=== PATIENT | female | born 1955 | race Caucasian/White ===

== ENCOUNTER 2016-07-20 12:13 | Observation (INO) | payer MEDICAID ==
[2016-07-20] MEDS ORDERED: methylPREDNISolone Sodium Succinate 125 MG/2 ML SDV IM ONE (12:33)
--- NOTE | 2016-07-20 12:39 | EDM.PDOC ---
ED HISTORY OF PRESENT ILLNESS - General Chief Complaint: Respiratory Problem Stated Complaint: SHORT OF BREATH Time Seen by Provider: 07/20/16 12:31 Source of Information: Reports: Patient, Family History Limitations: Reports: No limitations - History of Present Illness INITIAL COMMENTS - FREE TEXT/NARRATIVE: Patient complaints of joint aches starting on Wednesday with nausea and vomiting starting Wednesday. She endorses fever and chills the last 2 nights. States she has sore ribs from all the coughing she has started doing since yesterday. 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 She has smoked 1/ 2 PPD for 30 years. Additional history includes htn, chronic pain, GERD, pancreatic cancer with removal of 2/3 pancrease, spleen, gall bladder, appendix. Removed ovaries, left uterus. She states initial suspicions of cancer were an origination from the appendix. Symptom Onset Date: 07/17/16 Timing/Duration: Reports: Sudden onset Severity: moderate Location, General: Reports: chest Quality: Reports: Ache Improves with: Reports: None, Medication Worsens with: Reports: Other (coughing) Associated Symptoms (General): Reports: cough, fever/chills, headaches, nausea/ vomiting, shortness of breath - Related Data Allergies/ADRs: Allergies Allergy/AdvReac Type Severity Reaction Status Date / Time Iodine and Iodide Containing Allergy Severe Anaphylactic Verified 07/14/16 09:55 Produc Shock erythromycin base Allergy Rash Verified 07/20/16 12:40 latex Allergy Rash Verified 07/20/16 12:40 Penicillins Allergy Rash Verified 07/20/16 12:40 Sulfa (Sulfonamide Allergy Rash Verified 07/20/16 12:40 Antibiotics) Home Meds: Home Meds Cyclobenzaprine [Flexeril] 10 mg PO Q8H PRN 07/20/16 [History] Gabapentin [Neurontin] 600 mg PO TID 07/20/16 [History] Losartan Potassium 25 mg PO DAILY 07/20/16 [History] Morphine Sulfate [Morphine Sulfate ER] 30 mg PO BID 07/20/16 [History] Omeprazole 20 mg PO DAILY 07/20/16 [History] SUMAtriptan [Imitrex] 25 mg PO Q2H PRN 07/20/16 [History] Warfarin [Coumadin] 7.5 mg PO DAILY 07/20/16 [History] amLODIPine [Norvasc] 5 mg PO DAILY 07/20/16 [History] ED ROS GENERAL - Review of Systems Review Of Systems: See Below Constitutional: Reports: fever, chills, night sweats HEENT: Reports: Other (pain bilateral forehead) Respiratory: Reports: Shortness of Breath, Wheezing, Pleuritic Chest Pain, Cough Cardiovascular: Reports: Dyspnea on exertion Endocrine: Reports: no symptoms GI/Abdominal: Reports: No symptoms : Reports: no symptoms Musculoskeletal: Reports: joint pain, other (describes rib pain) Skin: Reports: no symptoms Neurological: Reports: No Symptoms Psychiatric: Reports: No symptoms Hematologic/Lymphatic: Reports: no symptoms Immunologic: Reports: no symptoms ED EXAM, GENERAL - Physical Exam Exam: See Below Exam Limited By: No limitations General Appearance: alert, WD/WN, mild distress Eye Exam: bilateral eye: EOMI, PERRL Ears: normal TMs Throat/Mouth: Normal inspection, Normal oropharynx Head: atraumatic, normocephalic, sinus tenderness Neck: normal inspection, supple Respiratory/Chest: no respiratory distress, crackles, rhonchi (bibasilar) Cardiovascular: normal peripheral pulses, regular rate, rhythm, no edema Peripheral Pulses: 2+: posterior tibial (L), posterior tibial (R), dorsalis pedis (L), dorsalis pedis (R) GI/Abdominal: normal bowel sounds, soft, non tender Back Exam: normal inspection Extremities: normal inspection, normal range of motion, non-tender, no pedal edema, normal capillary refill Neurological: alert, oriented, CN II-XII intact, normal cognition Psychiatric: normal affect, normal mood Skin Exam: Warm, Dry, Intact, Ecchymosis Lymphatic: no adenopathy Departure - Departure Time of Disposition: 14:04 Disposition: Refer to Observation Condition: good Clinical Impression: Influenza B
[2016-07-20 13:25] LABS: CHLORIDE,CL 103 mmol/L (98-107); SODIUM,NA 139 mmol/L (136-145)
[2016-07-20] MEDS ORDERED: Albuterol/Ipratropium 3.0-0.5 MG/3 ML Neb Soln NEB ONE (13:30)
[2016-07-20] MEDS ORDERED: Sodium Chloride 0.9% 10 ML Syringe FLUSH PRN (14:03)
[2016-07-20] MEDS ORDERED: Albuterol 0.083% 2.5 MG/3 ML Neb Soln NEB PRN (14:40)
[2016-07-20] MEDS ORDERED: Acetaminophen 325 MG Tab PO PRN (14:40)
[2016-07-20] MEDS ORDERED: Docusate Sodium 100 MG Cap PO PRN (14:40)
[2016-07-20] MEDS ORDERED: Ondansetron 4 MG Tab.DIS PO PRN (14:40)
[2016-07-20] MEDS ORDERED: Cyclobenzaprine 10 MG Tab PO PRN (14:45)
[2016-07-20] MEDS ORDERED: SUMAtriptan 50 MG Tab PO PRN (14:45)
[2016-07-20] MEDS: Losartan 25 MG Tab PO SCH (14:56)
[2016-07-20] MEDS: Morphine 30 MG Tab.ER PO SCH ×2 (15:00→20:03)
[2016-07-20] MEDS: Nicotine 7 MG/24 Hr Patch TRDERM SCH (15:01)
[2016-07-20] MEDS: Sodium Chloride 0.9% 1,000 ML IV SCH ×2 (15:17→21:04)
[2016-07-20] MEDS ORDERED: Warfarin 2.5 MG Tab PO SCH (20:00)
[2016-07-20] MEDS: Gabapentin 300 MG Cap PO SCH (20:04)
[2016-07-21] MEDS: Sodium Chloride 0.9% 1,000 ML IV SCH (04:51)
[2016-07-21] MEDS ORDERED: Omeprazole 20 MG Cap.CR PO SCH (07:00)
[2016-07-21] MEDS: Losartan 25 MG Tab PO SCH (08:01)
[2016-07-21] MEDS: Gabapentin 300 MG Cap PO SCH (08:01)
[2016-07-21] MEDS: Morphine 30 MG Tab.ER PO SCH (08:01)
[2016-07-21] MEDS: Nicotine 7 MG/24 Hr Patch TRDERM SCH (08:01)
[2016-07-21 10:55] VITALS: BP 115/68
--- NOTE | 2016-07-22 01:14 | DISCH ---
ADMITTING PROVIDER: Ronal Barrera NP. DISCHARGING PROVIDER: Edward Whitt PA-C. ADMITTING DIAGNOSES: 1. Influenza B. 2. Acute chronic obstructive pulmonary disease exacerbation. DISCHARGE DIAGNOSES: 1. Influenza B. 2. Acute chronic obstructive pulmonary disease exacerbation. SUBJECTIVE: Amanda was admitted on observation status to our service yesterday afternoon with cough, myalgias, and respirophasic chest pain. The patient was found to be positive for influenza B. She does have a history of tobacco abuse disorder and undiagnosed history of COPD. She has not had any pulmonary function testing to determine an official diagnosis of this, however, she has been a heavy smoker for most of her life. The patient was experiencing some dyspnea yesterday, so a decision was made to admit the patient on observation status. Her vital signs on admission were blood pressure 129/74, pulse rate is 95, temp was 37.3, O2 saturation was in the low 90s at 3 L of oxygen per nasal cannula. She was saturating at approximately 86% without oxygen. PHYSICAL EXAMINATION: Vital Signs: This morning, blood pressure is 115/68, pulse rate is 83, respiratory rate 16, O2 saturations 91 and 92% on room air, temperature is 36.6. Skin: Warm, pink, and dry. Lungs: Does have some continued mild crackles and wheezing. Heart: Regular rate and rhythm. Abdomen: Soft and nontender. There is no hepatosplenomegaly noted. There is no masses noted. Extremities: Without edema. Neurologic: She is alert and oriented, answers all questions appropriately. LABORATORY DATA: This morning, WBC is 9.0, hemoglobin is 11.1, platelets are 251. She did have 46% neutrophils, 2% bands, 4% lymphocytes, 8% monocytes, 1+ toxic granulation. PA and lateral chest x-ray was obtained. There was continued evidence of persistent interstitial prominence of the right lower lung base related to acute interstitial pneumonitis versus scarring, appearance most likely associated with a viral pneumonia. DISPOSITION: Home with self-care. FOLLOWUP: She states that her primary care provider is located in [place]. I will have her follow up with Leigh Taylor in approximately 10 days. DISCHARGE MEDICATIONS: Continue with her current medications. In addition, I did start her on Tamiflu 75 mg twice daily for 5 days. Also, she was started on prednisone 40 mg daily for 5 days and Zithromax 500 mg a day and 250 mg on days 2 through 5. She is to return to the emergency room if she develops worsening dyspnea, chest pain, jaw, arm, neck, or back pain, or decreased level of consciousness. MWK: 07/21/2016 11:03:35 MODL: 07/22/2016 01:08:34 /[id number]
== END 2016-07-21 12:15 | disposition home or self-care (01) ==
LOC: VM.ED 12:13 → VM.MS 14:05
PROVIDERS: ADMIT Nurse Practitioner Family; ATTEND Nurse Practitioner Family
DX: J44.1 Chronic obstructive pulmonary disease with (acute) exacerbation (principal); J10.1 Influenza due to other identified influenza virus with other respiratory manifestations; Z88.0 Allergy status to penicillin; Z88.1 Allergy status to other antibiotic agents; Z88.2 Allergy status to sulfonamides; Z91.040 Latex allergy status; Z79.01 Long term (current) use of anticoagulants; Z79.899 Other long term (current) drug therapy; Z91.09 Other allergy status, other than to drugs and biological substances
CPT/HCPCS: 36415; 71020; 80053; 82550; 83880; 84443; 84484; 85025; 85379; 85610; 87804; 93005; 94640; 94760; 96360; 96361; 96372; 99285; A9270; G0378; J2930; J7030

== ENCOUNTER 2016-07-31 14:36 | Observation (INO) | payer MEDICAID ==
[2016-07-31] MEDS: Sodium Chloride 0.9% 1,000 ML IV ONE ×2 (15:05→16:01)
[2016-07-31 15:51] LABS: CHLORIDE,CL 105 mmol/L (98-107); SODIUM,NA 140 mmol/L (136-145)
[2016-07-31] MEDS ORDERED: Morphine 4 MG/ML Syringe IVPUSH ONE (15:53)
[2016-07-31] MEDS: Sodium Chloride 0.9% 10 ML Syringe FLUSH PRN (17:30)
[2016-07-31] MEDS: cefTRIAXone 1 GM Vial IVPUSH SCH (17:30)
[2016-07-31] MEDS: Sodium Chloride 0.9% with KCl 1,000 ML IV SCH ×2 (18:05→23:47)
[2016-07-31] MEDS: Morphine 30 MG Tab.ER PO SCH (18:07)
[2016-07-31] MEDS: Acetaminophen/HYDROcodone 325-10 MG Tab PO PRN ×2 (18:46→22:48)
[2016-07-31] MEDS: Cyclobenzaprine 10 MG Tab PO PRN (18:46)
--- NOTE | 2016-07-31 19:16 | ER ---
Date of Service: 07/31/2016 SUBJECTIVE: Amanda presents to the emergency room with complaints of lightheadedness and weakness. She went to the clinic earlier today after she had taken her blood pressure at one of the pharmacies and was found to be approximately 80 systolic. At the clinic, the patient's blood pressure was found to be in the 70s systolic. She was also found to be quite tachycardic with a heart rate in the 120s to 130s. The patient was hospitalized at our facility, on our service from 07/20/2016 to 07/21/2016 with influenza B related community-acquired pneumonia. She was treated with Tamiflu and was rehydrated and was feeling much better at the time of discharge. 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 She states that she is continuing to have some cough. She was started on Rocephin and azithromycin during her last hospitalization and was sent home on oral Zithromax for a total of 5 days as well. She states that she is not experiencing any dysuria. She denies any abdominal pain. PAST MEDICAL HISTORY: 1. Recent hospitalization for influenza B pneumonia. 2. Asplenic patient. 3. History of pancreatic cancer. 4. Chronic pain syndrome. 5. Hypertension. 6. GERD. 7. Status post cholecystectomy. 8. Appendectomy. 9. Partial hysterectomy. MEDICATIONS: 1. [place] 10/325 1 q.4 hours p.r.n. 2. Flexeril 10 mg t.i.d. p.r.n. 3. Coumadin 7.5 mg p.o. daily. 4. Imitrex 25 mg p.o. q. 2 hours p.r.n. 5. Omeprazole 20 mg p.o. b.i.d. 6. Morphine sulfate ER 30 mg p.o. q.12 hours. 7. Losartan potassium 25 mg p.o. daily. 8. Gabapentin 600 mg p.o. t.i.d. 9. Acetaminophen 650 mg p.o. q.4 hours p.r.n. ALLERGIES: 1. To iodine and iodine containing products. 2. Doxycycline. 3. Erythromycin. 4. Ketorolac. 5. Latex. 6. Oxycodone. 7. Penicillin. 8. Shellfish derivatives. 9. Sulfa. SOCIAL HISTORY: She lives in [place]. She is a smoker and a drinker. 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 REVIEW OF SYSTEMS: General: Denies any fever or chills. HEENT: No sore throat, rhinorrhea, or congestion. Respiratory: No shortness of breath. Cardiac: Denies any substernal chest pain. No jaw, arm, neck, or back pain. GI: No nausea, vomiting, or diarrhea. No melena, hematochezia, or hematemesis. : Denies any dysuria. Musculoskeletal: No myalgias or arthralgias. Neurologic: She does complain of feeling lightheaded and weak. Denies any focal neuro symptoms. No difficulties with speech or ambulation. PHYSICAL EXAMINATION: General: This is a 60-year-old female patient, who is in no acute distress. Vital Signs: Blood pressure initially was 75/39, heart rate was approximately 122, temperature is 36.2. Skin: Warm, pale, and dry. HEENT. Head is normocephalic, atraumatic. Eyes, PERRLA. Extraocular movements are intact. Ears, TMs are clear. Mouth, oral mucosa is somewhat dry. No erythema or exudate noted in the hypopharynx. Neck: Supple without masses. There is no lymphadenopathy. Lungs: Diminished with crackles and rhonchi noted in the lung bases. Heart: Regular rhythm. She is tachycardic. I hear no murmur. Abdomen: Soft and nontender. There is no hepatosplenomegaly noted. There is no masses noted. Extremities: Without edema. Neurologic: She is alert and oriented, and answers all questions appropriately. Her speech is fluent. Her gait is within normal limits. She has no pronator drift. Her Romberg is negative. Cranial nerves 2 through 12 are intact. Remainder of the physical examination is within normal limits. Portable chest x-ray was obtained. There was no evidence of any acute infiltrate. DIAGNOSTIC DATA: A 12-lead EKG was obtained showing a sinus tachycardia with no acute ST or T-wave abnormalities. LABORATORY DATA: WBC is 10.4, hemoglobin is 11.6, and platelets are 525. PT is 49.9, INR is 4.4. D-dimer is negative. Chemistry; sodium is 140, potassium is 3.1, chloride is 105, bicarb is 25, BUN is 14, and creatinine is 1.1. Creatinine clearance is 54.5. GFR is 57. Glucose is 128, lactic acid is 1.7, calcium is 8.4, and corrected calcium is 9.4. Total bilirubin is 0.3, AST is 59, ALT is 45, and alkaline phosphatase is 205. Urinalysis reveals a specific gravity of 1.005 after approximately 1350 mLs of normal saline. Negative for protein, glucose, and ketones. She did have a trace of occult blood. She was negative for nitrites and urobilinogen, but did have a trace of leukocyte esterase. EMERGENCY ROOM COURSE: 1. The patient was fluid resuscitated with a total of approximately 1350 mLs of normal saline in the ER. Her blood pressure improved nicely, and at the time of transfer to the floor was 124/79, and her heart rate had decreased down to approximately 90. On obtaining the patient's urinalysis, I did start her on Rocephin 1 g daily. She remained stable on my care in the emergency room. ASSESSMENT: 1. Hypotension secondary to dehydration. 2. Urinary tract infection. 3. Hypokalemia. 4. Supratherapeutic INR. PLAN: The patient will be admitted on observation status. Again, we will continue Rocephin 1 g daily for her UTI. She does also have very coarse diminished lung sounds. We will repeat a chest x-ray tomorrow to see if she has any evidence of continued pneumonia. We will hold her warfarin tomorrow to see and recheck INR in the morning. Also, we will hold her antihypertensive agents due to her recent history of hypotension. We will start the patient on normal saline at 40 KCl at 175 an hour. We will re- evaluate CBC and basic metabolic panel, PT, PTT, INR, and chest x-ray in the morning. The patient identifies herself as a code level 1. The patient's care will be transferred to [facility] at shift change this evening. MWK: 07/31/2016 18:18:41 MODL: 07/31/2016 19:10:30 /[id number]
[2016-07-31] MEDS: Gabapentin 300 MG Cap PO SCH (19:52)
[2016-07-31] MEDS: Omeprazole 20 MG Cap.CR PO SCH (19:53)
[2016-07-31] MEDS ORDERED: Acetaminophen 325 MG Tab PO PRN (22:21)
[2016-07-31] MEDS ORDERED: SUMAtriptan 50 MG Tab PO PRN (22:24)
[2016-08-01] MEDS: Sodium Chloride 0.9% with KCl 1,000 ML IV SCH (05:47)
[2016-08-01] MEDS: Morphine 30 MG Tab.ER PO SCH (05:47)
[2016-08-01] MEDS: Omeprazole 20 MG Cap.CR PO SCH ×2 (05:57→06:02)
[2016-08-01] MEDS: Gabapentin 300 MG Cap PO SCH (07:32)
[2016-08-01] MEDS: Acetaminophen/HYDROcodone 325-10 MG Tab PO PRN (07:32)
[2016-08-01] MEDS: Cyclobenzaprine 10 MG Tab PO PRN (07:32)
[2016-08-01] MEDS: cefTRIAXone 1 GM Vial IVPUSH SCH (07:33)
[2016-08-01] MEDS: Sodium Chloride 0.9% 10 ML Syringe FLUSH PRN (07:33)
[2016-08-01 08:32] LABS: CHLORIDE,CL 112 mmol/L (98-107); SODIUM,NA 142 mmol/L (136-145)
--- NOTE | 2016-08-01 09:43 | PCM.DCSUM1 ---
Discharge Summary - Hospital Course HPI Initial Comments: 60-year-old female with a past medical history of asplenia, pancreatic cancer, hypertension, GERD was admitted to our observation unit for hypotension secondary to dehydration, UTI, hypokalemia, and supratherapeutic INR. The patient was at her pharmacy yesterday and had her blood pressure checked. The patient's blood pressure was 80 systolic at the pharmacy, therefore she was seen at [facility] yesterday for low blood pressure. In the clinic the patient's blood pressure was found to be in the 70s, therefore she was seen in the emergency room at [facility]. During the emergency room visit, the patient's blood pressure was in the 80s. She was also found to have a low potassium an elevated INR. The patient was started on IV fluids and antibiotics for her urinary tract infection. - Discharge Data Discharge Date: 08/01/16 Discharge Disposition: Home, Self-Care 01 Condition: Good - Discharge Diagnosis/Problem(s) (1) Hypotension SNOMED Code(s): 90385635 ICD Code: I95.9 - HYPOTENSION, UNSPECIFIED Status: Acute Priority: High Current Visit: Yes Onset Date: ~07/31/16 Qualifiers: Hypotension type: unspecified hypotension type Qualified Code(s): I95.9 - Hypotension, unspecified (2) UTI (urinary tract infection) SNOMED Code(s): 10220873 ICD Code: N39.0 - URINARY TRACT INFECTION, SITE NOT SPECIFIED Status: Acute Priority: Medium Current Visit: Yes Qualifiers: Urinary tract infection type: acute cystitis Hematuria presence: without hematuria Qualified Code(s): N30.00 - Acute cystitis without hematuria (3) Acute hypokalemia SNOMED Code(s): 23830263 ICD Code: E87.6 - HYPOKALEMIA Status: Acute Priority: Medium Current Visit: Yes (4) Supratherapeutic INR SNOMED Code(s): 707838514, 541528636 ICD Code: R79.1 - ABNORMAL COAGULATION PROFILE Status: Acute Current Visit: Yes - Patient Summary/Data Operative Procedure(s) Performed: None Labs Pending at D/C: None Hospital Course: Upon admission to the floor, the patient's blood pressures were much improved. The patient's blood pressures remained very stable and at baseline. The patient' s Coumadin was held overnight and her INR this morning was 3.4. The patient did have some issues with a headache overnight which was successfully treated with Imitrex. The patient did not have any trouble with bowel movements or urination. The patient was able to ambulate without any orthostatic symptoms. The patient states this morning that she feels very good. She offers no specific complaints. - Patient Instructions Diet: Heart Healthy Diet Activity: Rest and Relax Today Driving: Do Not Drive (just for today) Showering/Bathing: July Shower Notify Provider of: Fever, Increased Pain, Nausea and/or Vomiting - Discharge Plan Home Medications: Home Meds Cyclobenzaprine [Flexeril] 10 mg PO TID PRN 07/20/16 [History] Gabapentin [Neurontin] 600 mg PO TID 07/20/16 [History] Hydrocodone/Acetaminophen [[place] 10-325 Tablet] 1 each PO Q4H PRN 07/20/16 [ History] Losartan Potassium 25 mg PO DAILY 07/20/16 [History] Morphine Sulfate [Morphine Sulfate ER] 30 mg PO Q12H 07/20/16 [History] Omeprazole 20 mg PO BID 07/20/16 [History] SUMAtriptan [Imitrex] 25 mg PO Q2H PRN 07/20/16 [History] Warfarin [Coumadin] 7.5 mg PO DAILY 07/20/16 [History] Acetaminophen [Tylenol] 650 mg PO Q4H PRN #0 tablet 07/21/16 [Rx] Patient Handouts: Hypotension Referrals: Leigh Taylor PA-C [Physician Machine Assistant] - - Discharge Summary/Plan Comment DC Time >30 min.: No - General Info Date of Service: 08/01/16 Admission Dx/Problem (Free Text: Hypotension secondary to dehydration Urinary tract infection Hypokalemia Supratherapeutic INR Functional Status: Reports: pain controlled, tolerating diet, ambulating, urinating Numeric/FACES Score: 0 - Review of Systems General: Reports: No Symptoms Pulmonary: Reports: cough, sputum. Denies: shortness of breath Cardiovascular: Denies: Chest Pain, Palpitations Gastrointestinal: Denies: Abdominal pain, Nausea, Vomiting Skin: Reports: no symptoms Neurological: Reports: No Symptoms. Denies: Dizziness, Headache - Patient Data Vitals - Most Recent: Last Vital Signs Temp 36.7 C 08/01/16 05:53 Pulse 90 08/01/16 05:53 Resp 20 08/01/16 05:53 BP 137/90 08/01/16 05:53 Pulse Ox 95 08/01/16 05:53 Weight - Most Recent: 85.729 kg I&O - Last 24 hours: Intake & Output 07/31/16 08/01/16 08/01/16 22:59 06:59 14:59 Intake Total 2595 180 Output Total 300 Balance 2295 180 Lab Results - Last 24 hrs: Laboratory Results - last 24 hr 08/01/16 08/01/16 08/01/16 Range/Units 07:25 07:25 07:25 WBC 7.2 (4.0-10.0) x10^3/uL RBC 3.80 L (4.00-5.50) x10^6/uL Hgb 11.1 L (12.0-16.0) g/dL Hct 34.1 (33.0-47.0) % MCV 89.7 (78.0-93.0) fL MCH 29.2 (26.0-32.0) pg MCHC 32.6 (32.0-36.0) g/dL RDW Coeff of Yara 15.0 (10.0-15.0) % Plt Count 371 D (130-400) x10^3/uL Neut % (Auto) 39.7 L (50.0-80.0) % Lymph % (Auto) 43.8 (25.0-50.0) % [place] % (Auto) 13.5 H (2.0-11.0) % Eos % (Auto) 2.6 (0.0-4.0) % Baso % (Auto) 0.4 (0.2-1.2) % PT 39.0 H (10.0-12.8) SEC INR 3.4 (2.0-3.5) Sodium 142 (136-145) mmol/L Potassium 4.6 D (3.5-5.1) mmol/L Chloride 112 H (98-107) mmol/L Carbon Dioxide 23 (21-32) mmol/L BUN 8 (7-18) mg/dL Creatinine 0.7 (0.55-1.02) mg/dL Est Cr Clr Drug Dosing 77.87 mL/min Estimated GFR (MDRD) > 60 Glucose 104 (74-106) mg/dL Calcium 8.1 L (8.5-10.1) mg/dL Corrected Calcium 9.38 (8.5-10.1) mg/dL Total Bilirubin 0.4 (0.2-1.0) mg/dL AST 27 (15-37) U/L ALT 34 (14-59) U/L Alkaline Phosphatase 177 H (46-116) U/L Total Protein 5.8 L (6.4-8.2) g/dL Albumin 2.4 L (3.4-5.0) g/dL Globulin 3.4 Albumin/Globulin Ratio 0.71 Med Orders - Current: Current Medications Acetaminophen (Tylenol) 650 mg PO Q4H PRN PRN Reason: Pain/Fever Hydrocodone Bitart/Acetaminophen ([place] 325-10 Mg) 1 tab PO Q4H PRN PRN Reason: Pain Last Admin: 08/01/16 07:32 Dose: 1 tab Ceftriaxone Sodium (Rocephin) 1 gm IVPUSH DAILY [facility] Last Admin: 08/01/16 07:33 Dose: 1 gm Cyclobenzaprine HCl (Flexeril) 10 mg PO TID PRN PRN Reason: Spasms Last Admin: 08/01/16 07:32 Dose: 10 mg Gabapentin (Neurontin) 600 mg PO TID [facility] Last Admin: 08/01/16 07:32 Dose: 600 mg Potassium Chloride/Sodium Chloride (Normal Saline With 40 Meq Kcl) 1,000 mls @ 175 mls/hr IV ASDIRECTED [facility] Last Admin: 08/01/16 05:47 Dose: 175 mls/hr Morphine Sulfate (Ms Contin) 30 mg PO Q12H [facility] Last Admin: 08/01/16 05:47 Dose: 30 mg Omeprazole (Omeprazole) 20 mg PO BIDAC [facility] Last Admin: 08/01/16 06:02 Dose: Not Given Sodium Chloride (Saline Flush) 10 ml FLUSH ASDIRECTED PRN PRN Reason: Keep Vein Open Last Admin: 08/01/16 07:33 Dose: 10 ml Sumatriptan Succinate (Imitrex) 25 mg PO Q2H PRN PRN Reason: Headache Last Admin: 07/31/16 22:46 Dose: 25 mg Discontinued Medications Sodium Chloride (Normal Saline) 1,000 mls @ 1,000 mls/hr IV .BOLUS ONE Stop: 07/31/16 15:53 Last Admin: 07/31/16 16:01 Dose: 1,000 mls/hr Morphine Sulfate (Morphine) 4 mg IVPUSH ONETIME ONE Stop: 07/31/16 15:54 Last Admin: 07/31/16 15:59 Dose: 4 mg - Exam General: Reports: alert, oriented HEENT: Reports: Pupils equal, Pupils reactive, EOMI, Mucous membr. moist/pink Neck: Reports: supple Lungs: Reports: Normal respiratory effort, Rhonchi (clears with cough) Cardiovascular: Reports: Regular Rate, Regular Rhythm Abdomen: Reports: bowel sounds present, soft, no tenderness Skin: Reports: warm, dry, intact Neurological: Reports: no new focal deficit, normal speech *Q Meaningful Use (DIS) - VTE *Q VTE Criteria *Q: - Stroke *Q Stroke Criteria *Q: - AMI *Q AMI Criteria *Q:
[2016-08-01 10:07] VITALS: BP 145/82
--- NOTE | 2016-08-05 07:45 | ER ---
Date of Service: 07/31/2016 ADDENDUM: This emergency room note may be used as the patient's admission H and P. MWK: 08/04/2016 15:14:53 MODL: 08/04/2016 18:54:40 /[id number]
== END 2016-08-01 11:05 | disposition home or self-care (01) ==
LOC: VM.ED 14:36 → VM.MS 16:45
PROVIDERS: ADMIT Physician Assistant; ATTEND Family Medicine
DX: I95.9 Hypotension, unspecified (principal); N30.00 Acute cystitis without hematuria; E87.6 Hypokalemia; R79.1 Abnormal coagulation profile; Z79.01 Long term (current) use of anticoagulants; Z79.899 Other long term (current) drug therapy; I10 Essential (primary) hypertension; K21.9 Gastro-esophageal reflux disease without esophagitis; Z90.49 Acquired absence of other specified parts of digestive tract; Z90.710 Acquired absence of both cervix and uterus; Z88.0 Allergy status to penicillin; Z88.1 Allergy status to other antibiotic agents; Z88.2 Allergy status to sulfonamides; Z91.040 Latex allergy status; Z91.013 Allergy to seafood; Z88.8 Allergy status to other drugs, medicaments and biological substances; F17.200 Nicotine dependence, unspecified, uncomplicated; N39.0 Urinary tract infection, site not specified
CPT/HCPCS: 36415; 71010; 71020; 80053; 81001; 83605; 84484; 85025; 85379; 85610; 86140; 87040; 93005; 96361; 96374; 99285; A9270; J0696; J2270; J3480; J7030; J7050; 96375; 96376; G0378

== ENCOUNTER 2017-11-22 20:45 | Emergency (ER) | payer MEDICARE, MEDICAID ==
[2017-11-22 21:11] VITALS: BP 140/91
--- NOTE | 2017-11-22 22:27 | EDM.PDOC ---
ED HPI GENERAL MEDICAL PROBLEM - General Chief Complaint: Allergic Reaction Time Seen by Provider: 11/22/17 21:10 Source of Information: Reports: Patient History Limitations: Reports: No Limitations - History of Present Illness INITIAL COMMENTS - FREE TEXT/NARRATIVE: Sustained insect bite to R lateral chest/torso area. No fever or chills. States that she is not sure how she got the bite. States that she doesn't think it was from a bee or wasp. Denies any shortness of breath. No throat tightness. No chest pain or shortness of breath. R lateral side Pain Score (Numeric/FACES): 5 - Related Data Allergies Allergy/AdvReac Type Severity Reaction Status Date / Time Iodine and Iodide Containing Allergy Severe Anaphylactic Verified 11/22/17 21:03 Produc Shock doxycycline Allergy Rash Verified 11/22/17 21:03 erythromycin base Allergy Rash Verified 11/22/17 21:03 ketorolac Allergy Rash Verified 11/22/17 21:03 latex Allergy Rash Verified 11/22/17 21:03 Macrolide Antibiotics Allergy Rash Verified 11/22/17 21:03 oxycodone Allergy Cannot Verified 11/22/17 21:03 Remember Penicillins Allergy Rash Verified 11/22/17 21:03 shellfish derived Allergy Facial Verified 11/22/17 21:03 Swelling Sulfa (Sulfonamide Allergy Rash Verified 11/22/17 21:03 Antibiotics) Home Meds: Home Meds Cyclobenzaprine [Flexeril] 10 mg PO TID PRN 07/20/16 [History] Gabapentin [Neurontin] 600 mg PO TID 07/20/16 [History] Hydrocodone/Acetaminophen [[place] 10-325 Tablet] 1 each PO Q4H PRN 07/20/16 [ History] Losartan Potassium 25 mg PO DAILY 07/20/16 [History] Morphine Sulfate [Morphine Sulfate ER] 30 mg PO Q12H 07/20/16 [History] Omeprazole 20 mg PO BID 07/20/16 [History] SUMAtriptan [Imitrex] 25 mg PO Q2H PRN 07/20/16 [History] Warfarin [Coumadin] 7.5 mg PO DAILY 07/20/16 [History] Acetaminophen [Tylenol] 650 mg PO Q4H PRN #0 tablet 07/21/16 [Rx] Past Medical History Cardiovascular History: Reports: Blood Clots/VTE/DVT, Hypertension Respiratory History: Reports: Pneumonia, Recurrent Gastrointestinal History: Reports: GERD Musculoskeletal History: Reports: Other (See Below) Other Musculoskeletal History: DDD Oncologic (Cancer) History: Reports: Colon, Pancreatic, Other (See Below) Other Oncologic History: appendix. carcinoid - Infectious Disease History Infectious Disease History: Reports: Influenza - Past Surgical History GI Surgical History: Reports: Appendectomy, Other (See Below) Other GI Surgeries/Procedures: spleenectomy Female Surgical History: Reports: Other (See Below) Other Female Surgeries/Procedures: ovarian cyst removed Musculoskeletal Surgical History: Reports: Other (See Below) Other Musculoskeletal Surgeries/Procedures:: back surgeries X12 Oncologic Surgical History: Reports: Other (See Below) Social & Family History - Family History Family Medical History: Noncontributory - Tobacco Use Smoking Status *Q: Current Every Day Smoker Years of Tobacco use: 25 Packs/Tins Daily: 0.5 - Recreational Drug Use Recreational Drug Use: No ED ROS ALLERGIC REACTION - Review of Systems Review Of Systems: See Below Constitutional: Reports: No Symptoms HEENT: Reports: No Symptoms Respiratory: Reports: No Symptoms Cardiovascular: Reports: No Symptoms Endocrine: Reports: No Symptoms GI/Abdominal: Reports: No Symptoms : Reports: No Symptoms Musculoskeletal: Reports: No Symptoms Skin: Reports: Rash (To R side of chest), Erythema Neurological: Reports: No Symptoms Psychiatric: Reports: No Symptoms Hematologic/Lymphatic: Reports: No Symptoms Immunologic: Reports: No Symptoms ED EXAM GENERAL NO PERIP PULSE - Physical Exam Exam: See Below Exam Limited By: No Limitations General Appearance: Alert, WD/WN, No Apparent Distress Eye Exam: Bilateral Eye: EOMI, Normal Fundi, Normal Inspection, PERRL Ears: Normal External Exam, Normal Canal, Hearing Grossly Normal, Normal TMs Nose: Normal Inspection, Normal Mucosa, No Blood Throat/Mouth: Normal Inspection, Normal Lips, Normal Teeth, Normal Gums, Normal Oropharynx, Normal Voice, No Airway Compromise Head: Atraumatic, Normocephalic Neck: Normal Inspection, Supple, Non-Tender, Full Range of Motion Respiratory/Chest: No Respiratory Distress, Lungs Clear, Normal Breath Sounds, No Accessory Muscle Use, Chest Non-Tender Cardiovascular: Normal Peripheral Pulses, Regular Rate, Rhythm, No Edema, No Gallop, No JVD, No Murmur, No Rub GI/Abdominal: Normal Bowel Sounds, Soft, Non-Tender, No Organomegaly, No Distention, No Abnormal Bruit, No Mass (Female) Exam: Deferred Rectal (Female) Exam: Deferred Back Exam: Normal Inspection, Full Range of Motion, NT Extremities: Normal Inspection, Normal Range of Motion, Non-Tender, Normal Capillary Refill, No Pedal Edema Neurological: Alert, Oriented, CN II-XII Intact, Normal Cognition, Normal Gait, Normal Reflexes, No Motor/Sensory Deficits Psychiatric: Normal Affect, Normal Mood Skin Exam: Warm, Dry, Intact, Normal Color, No Rash Lymphatic: No Adenopathy Course - Vital Signs Last Recorded V/S: Last Vital Signs Temp 37.6 C 11/22/17 20:50 Pulse 105 H 11/22/17 20:50 Resp 16 11/22/17 20:50 BP 140/91 H 11/22/17 20:50 Pulse Ox 94 L 11/22/17 20:50 Departure - Departure Time of Disposition: 21:40 Disposition: Home, Self-Care 01 Clinical Impression: Insect bite - Discharge Information Instructions: Insect Bite, Adult Forms: ED Department Discharge Additional Instructions: Apply triamcinolone cream to area 3 times daily until improved. Rub well into skin. Benadryl 50mg every 4-6 hours as needed for pain/itching.
== END 2017-11-22 21:25 | disposition home or self-care (01) ==
LOC: VM.ED 20:45
DX: S20.361A Insect bite (nonvenomous) of right front wall of thorax, initial encounter (principal); Z88.0 Allergy status to penicillin; Z91.013 Allergy to seafood; Z91.040 Latex allergy status; Z88.1 Allergy status to other antibiotic agents; Z91.041 Radiographic dye allergy status; Z88.2 Allergy status to sulfonamides; Z79.01 Long term (current) use of anticoagulants; Z79.899 Other long term (current) drug therapy; I10 Essential (primary) hypertension; F17.210 Nicotine dependence, cigarettes, uncomplicated; W57.XXXA Bitten or stung by nonvenomous insect and other nonvenomous arthropods, initial encounter
CPT/HCPCS: 99281; 99282-GF

== ENCOUNTER 2018-05-22 21:31 | Emergency (ER) | payer MEDICAID, MEDICARE ==
[2018-05-22 21:44] VITALS: BP 99/73
--- NOTE | 2018-05-22 22:08 | EDM.PDOC ---
ED HPI GENERAL MEDICAL PROBLEM - General Chief Complaint: Upper Extremity Injury/Pain Stated Complaint: LUMPS WHERE HAND WAS BROKEN Time Seen by Provider: 05/22/18 21:42 Source of Information: Reports: Patient History Limitations: Reports: No Limitations - History of Present Illness INITIAL COMMENTS - FREE TEXT/NARRATIVE: Patient reports she fell 2 months ago, requiring surgery to reduce and repair the fractures in her wrist. Hardware was placed. She states she is done with physical therapy. States that while massaging the area she noted some nodules in the hand and wrist along the incision line. Concerned for clots as she states she has a history. Is on daily coumadin for prophylaxis. States she noted the bumps about a week ago. No increased redness, swelling, pain. Denies SOB, chest pain, abdominal pain, nausea or vomiting. Denies any urinary or bowel issues. Onset: Gradual Duration: Intermittent Location: Reports: Upper Extremity, Right Severity: Mild Associated Symptoms: Reports: No Other Symptoms Right Wrist Pain Score (Numeric/FACES): 7 - Related Data Allergies Allergy/AdvReac Type Severity Reaction Status Date / Time Iodine and Iodide Containing Allergy Severe Anaphylactic Verified 05/22/18 21:46 Produc Shock doxycycline Allergy Rash Verified 05/22/18 21:46 erythromycin base Allergy Rash Verified 05/22/18 21:46 ketorolac Allergy Rash Verified 05/22/18 21:46 latex Allergy Rash Verified 05/22/18 21:46 Macrolide Antibiotics Allergy Rash Verified 05/22/18 21:46 oxycodone Allergy Cannot Verified 05/22/18 21:46 Remember Penicillins Allergy Rash Verified 05/22/18 21:46 shellfish derived Allergy Facial Verified 05/22/18 21:46 Swelling Sulfa (Sulfonamide Allergy Rash Verified 05/22/18 21:46 Antibiotics) Home Meds: Home Meds Cyclobenzaprine [Flexeril] 10 mg PO TID PRN 07/20/16 [History] Gabapentin [Neurontin] 600 mg PO TID 07/20/16 [History] Hydrocodone/Acetaminophen [[place] 10-325 Tablet] 1 each PO Q4H PRN 07/20/16 [ History] Losartan Potassium 25 mg PO DAILY 07/20/16 [History] Morphine Sulfate [Morphine Sulfate ER] 30 mg PO Q12H 07/20/16 [History] Omeprazole 20 mg PO BID 07/20/16 [History] SUMAtriptan [Imitrex] 25 mg PO Q2H PRN 07/20/16 [History] Warfarin [Coumadin] 7.5 mg PO DAILY 07/20/16 [History] Acetaminophen [Tylenol] 650 mg PO Q4H PRN #0 tablet 07/21/16 [Rx] Past Medical History Cardiovascular History: Reports: Blood Clots/VTE/DVT, Hypertension Respiratory History: Reports: Pneumonia, Recurrent Gastrointestinal History: Reports: GERD Musculoskeletal History: Reports: Other (See Below) Other Musculoskeletal History: DDD Oncologic (Cancer) History: Reports: Colon, Pancreatic, Other (See Below) Other Oncologic History: appendix. carcinoid - Infectious Disease History Infectious Disease History: Reports: Influenza - Past Surgical History GI Surgical History: Reports: Appendectomy, Other (See Below) Other GI Surgeries/Procedures: spleenectomy Female Surgical History: Reports: Other (See Below) Other Female Surgeries/Procedures: ovarian cyst removed Musculoskeletal Surgical History: Reports: Other (See Below) Other Musculoskeletal Surgeries/Procedures:: back surgeries X12 Oncologic Surgical History: Reports: Other (See Below) Social & Family History - Family History Family Medical History: Noncontributory - Tobacco Use Smoking Status *Q: Current Every Day Smoker Years of Tobacco use: 15 Packs/Tins Daily: 0.5 Review of Systems - Review of Systems Review Of Systems: See Below Constitutional: Reports: No Symptoms Eyes: Reports: No Symptoms Ears: Reports: No Symptoms Nose: Reports: No Symptoms Mouth/Throat: Reports: No Symptoms Respiratory: Reports: No Symptoms Cardiovascular: Reports: No Symptoms GI/Abdominal: Reports: No Symptoms Genitourinary: Reports: No Symptoms Musculoskeletal: Reports: Arm Pain (right forearm and hand, bumps to both locations), Hand Pain Skin: Reports: No Symptoms Neurological: Reports: No Symptoms Psychiatric: Reports: No Symptoms ED EXAM, GENERAL - Physical Exam Exam: See Below Exam Limited By: No Limitations General Appearance: Alert, WD/WN, No Apparent Distress Eye Exam: Bilateral Eye: EOMI, PERRL Head: Atraumatic, Normocephalic Neck: Normal Inspection, Supple, Non-Tender, Full Range of Motion Respiratory/Chest: No Respiratory Distress, Lungs Clear, Normal Breath Sounds, No Accessory Muscle Use, Chest Non-Tender Cardiovascular: Normal Peripheral Pulses, Regular Rate, Rhythm, No Edema, No Gallop, No JVD, No Murmur, No Rub Peripheral Pulses: 2+: Radial (L), Radial (R), Posterior Tibial (L), Posterior Tibial (R), Dorsalis Pedis (L), Dorsalis Pedis (R) Extremities: Normal Range of Motion, Non-Tender, No Pedal Edema, Normal Capillary Refill, Other (palpation of incisional area does indicate nodules to distal forearm and mid palmar side of hand, no redness, swelling, increased warmth noted. No drainage, incision well healed, C/D/I) Neurological: Alert, Oriented, CN II-XII Intact, Normal Cognition, Normal Gait, Normal Reflexes, No Motor/Sensory Deficits Psychiatric: Normal Affect, Normal Mood Skin Exam: Warm, Dry, Intact, Normal Color, No Rash Lymphatic: No Adenopathy Course - Vital Signs Last Recorded V/S: Last Vital Signs Temp 36.4 C 05/22/18 21:40 Pulse 94 05/22/18 21:40 Resp 18 05/22/18 21:40 BP 99/73 05/22/18 21:40 Pulse Ox 94 L 05/22/18 21:40 - Orders/Labs/Meds Orders: Active Orders 24 hr Category Date Time Status Wrist Comp Min 3V Rt [CR] Stat Exams 05/22/18 21:46 Taken - Radiology Interpretation Free Text/Narrative:: x-ray negative for acute fractures or misalignment of healing and hardware Departure - Departure Time of Disposition: 22:24 Disposition: Home, Self-Care 01 Condition: Good Clinical Impression: Scar, hypertrophic - Discharge Information *PRESCRIPTION DRUG MONITORING PROGRAM REVIEWED*: Not Applicable *COPY OF PRESCRIPTION DRUG MONITORING REPORT IN PATIENT COREY: Not Applicable Forms: ED Department Discharge Additional Instructions: Plan 1. Follow up with your surgeon regarding the nodules. They could be areas of hypertrophic scarring. He may want to follow up with additional imaging like MRI 2. Continue to take medications as prescribed previously for pain, muscle spasms , etc. 3. X-ray images do not indicate any new fractures or misaligned healing. 4. Call the ER if you have any additional questions or concerns. - Problem List & Annotations (1) Scar, hypertrophic SNOMED Code(s): 98629218 Code(s): L91.0 - HYPERTROPHIC SCAR Status: Acute Priority: Low Current Visit: Yes - Problem List Review Problem List Initiated/Reviewed/Updated: Yes - My Orders Last 24 Hours: My Active Orders 05/22/18 21:46 Wrist Comp Min 3V Rt [CR] Stat - Assessment/Plan Last 24 Hours: My Active Orders 05/22/18 21:46 Wrist Comp Min 3V Rt [CR] Stat Assessment:: hypertrophic scarring Plan: Plan 1. Follow up with your surgeon regarding the nodules. They could be areas of hypertrophic scarring. He may want to follow up with additional imaging like MRI 2. Continue to take medications as prescribed previously for pain, muscle spasms , etc. 3. X-ray images do not indicate any new fractures or misaligned healing. 4. Call the ER if you have any additional questions or concerns.
--- NOTE | 2018-05-24 09:11 | CR ---
[id number] RAD/RAD Wrist Right 3V Min EXAM: RAD Wrist Right 3V Min CLINICAL DATA: FOLLOW-UP INTERNAL FIXATION OF DISTAL RIGHT RADIAL FRACTURE. COMPARISON: CORRELATION IS MADE WITH THE EXAM OF FEBRUARY 12, 2018. FINDINGS: Surgical changes of the distal radius are seen. There is alignment of fracture fragments. An ununited ulnar styloid fracture is identified also.. IMPRESSION: STABLE APPEARANCE OF DISTAL RIGHT RADIAL FRACTURE FRAGMENTS. Ken Ramsey MD 05/24/18 0910 Thank you for allowing us to participate in the care of your patient.
== END 2018-05-22 22:28 | disposition home or self-care (01) ==
LOC: VM.ED 21:31
DX: L91.0 Hypertrophic scar (principal); I10 Essential (primary) hypertension; F17.210 Nicotine dependence, cigarettes, uncomplicated; Z88.0 Allergy status to penicillin; Z88.2 Allergy status to sulfonamides; Z91.013 Allergy to seafood; Z87.01 Personal history of pneumonia (recurrent); Z90.49 Acquired absence of other specified parts of digestive tract; Z79.01 Long term (current) use of anticoagulants; Z88.6 Allergy status to analgesic agent; Z88.1 Allergy status to other antibiotic agents; Z91.09 Other allergy status, other than to drugs and biological substances
CPT/HCPCS: 73110-RT; 99283-25; 99283-GF

== ENCOUNTER 2018-09-25 12:52 | Emergency (ER) | payer MEDICARE ==
[2018-09-25 13:15] VITALS: BP 113/74; PULSE 150
--- NOTE | 2018-09-25 13:32 | EDM.PDOC ---
ED HPI GENERAL MEDICAL PROBLEM - General Chief Complaint: Upper Extremity Injury/Pain Stated Complaint: RT WRIST Time Seen by Provider: 09/25/18 13:02 Source of Information: Reports: Patient History Limitations: Reports: No Limitations - History of Present Illness INITIAL COMMENTS - FREE TEXT/NARRATIVE: Patient presents to the ED with complaints of right wrist pain. She had a broken right wrist last January 2018 with surgery to repair with hardware. She has not had any falls or trauma to the area but complains that it is swollen and painful. She also states her grasp is weak. Duration: Chronic, Constant Location: Reports: Upper Extremity, Right Right Wrist Pain Score (Numeric/FACES): 4 - Related Data Allergies Allergy/AdvReac Type Severity Reaction Status Date / Time Iodine and Iodide Containing Allergy Severe Anaphylactic Verified 09/25/18 13:19 Produc Shock doxycycline Allergy Rash Verified 09/25/18 13:19 erythromycin base Allergy Rash Verified 09/25/18 13:19 ketorolac Allergy Rash Verified 09/25/18 13:19 latex Allergy Rash Verified 09/25/18 13:19 Macrolide Antibiotics Allergy Rash Verified 09/25/18 13:19 oxycodone Allergy Cannot Verified 09/25/18 13:19 Remember Penicillins Allergy Rash Verified 09/25/18 13:19 shellfish derived Allergy Facial Verified 09/25/18 13:19 Swelling Sulfa (Sulfonamide Allergy Rash Verified 09/25/18 13:19 Antibiotics) Home Meds: Home Meds Cyclobenzaprine [Flexeril] 10 mg PO TID PRN 07/20/16 [History] Gabapentin [Neurontin] 600 mg PO TID 07/20/16 [History] Hydrocodone/Acetaminophen [[place] 10-325 Tablet] 1 each PO Q4H PRN 07/20/16 [ History] Losartan Potassium 25 mg PO DAILY 07/20/16 [History] Morphine Sulfate [Morphine Sulfate ER] 30 mg PO Q12H 07/20/16 [History] Omeprazole 20 mg PO BID 07/20/16 [History] SUMAtriptan [Imitrex] 25 mg PO Q2H PRN 07/20/16 [History] Warfarin [Coumadin] 7.5 mg PO DAILY 07/20/16 [History] Acetaminophen [Tylenol] 650 mg PO Q4H PRN #0 tablet 07/21/16 [Rx] Past Medical History Cardiovascular History: Reports: Blood Clots/VTE/DVT, Hypertension Respiratory History: Reports: Pneumonia, Recurrent Gastrointestinal History: Reports: GERD Musculoskeletal History: Reports: Other (See Below) Other Musculoskeletal History: DDD Oncologic (Cancer) History: Reports: Colon, Pancreatic, Other (See Below) Other Oncologic History: appendix. carcinoid - Infectious Disease History Infectious Disease History: Reports: Influenza - Past Surgical History GI Surgical History: Reports: Appendectomy, Other (See Below) Other GI Surgeries/Procedures: spleenectomy Female Surgical History: Reports: Other (See Below) Other Female Surgeries/Procedures: ovarian cyst removed Musculoskeletal Surgical History: Reports: Other (See Below) Other Musculoskeletal Surgeries/Procedures:: back surgeries X12 Oncologic Surgical History: Reports: Other (See Below) Social & Family History - Family History Family Medical History: Noncontributory Review of Systems - Review of Systems Review Of Systems: See Below Constitutional: Reports: No Symptoms Eyes: Reports: No Symptoms Ears: Reports: No Symptoms Nose: Reports: No Symptoms Mouth/Throat: Reports: No Symptoms Respiratory: Reports: No Symptoms Cardiovascular: Reports: No Symptoms GI/Abdominal: Reports: No Symptoms Genitourinary: Reports: No Symptoms Musculoskeletal: Reports: Arm Pain (right wrist) Skin: Reports: No Symptoms Neurological: Reports: No Symptoms Psychiatric: Reports: No Symptoms ED EXAM, GENERAL - Physical Exam Exam: See Below Exam Limited By: No Limitations General Appearance: Alert, WD/WN, No Apparent Distress Ears: Normal TMs Head: Atraumatic, Normocephalic Neck: Normal Inspection, Supple, Non-Tender, Full Range of Motion Respiratory/Chest: No Respiratory Distress, Lungs Clear, Normal Breath Sounds, No Accessory Muscle Use, Chest Non-Tender Cardiovascular: Tachycardia Peripheral Pulses: 2+: Radial (L), Radial (R) Extremities: Other (right wrist swelling, no erythema, drainage, warmth, neurovascular intact) Neurological: Alert, Oriented, CN II-XII Intact, Normal Cognition, Normal Gait, Normal Reflexes, No Motor/Sensory Deficits Psychiatric: Normal Affect, Normal Mood Skin Exam: Warm, Dry, Intact, Normal Color, No Rash Lymphatic: No Adenopathy Course - Vital Signs Last Recorded V/S: Last Vital Signs Temp 36.1 C 09/25/18 13:13 Pulse 150 H 09/25/18 13:13 Resp 14 09/25/18 13:13 BP 113/74 09/25/18 13:13 Pulse Ox 93 L 09/25/18 13:13 - Orders/Labs/Meds Orders: Active Orders 24 hr Category Date Time Status Wrist Comp Min 3V Rt [CR] Stat Exams 09/25/18 13:10 Ordered - Radiology Interpretation Free Text/Narrative:: Hardware appears intact, no acute fracture. Will wait for radiology confirmation. Departure - Departure Time of Disposition: 13:44 Disposition: Home, Self-Care 01 Condition: Good Clinical Impression: Swelling of joint, wrist, right - Discharge Information *PRESCRIPTION DRUG MONITORING PROGRAM REVIEWED*: Not Applicable *COPY OF PRESCRIPTION DRUG MONITORING REPORT IN PATIENT COREY: Not Applicable Referrals: Fidelia Bruce MD [Primary Care Provider] - Forms: ED Department Discharge Additional Instructions: Plan 1. Stay well hydrated 2. Keep your wrist wrapped as this can help with the swelling 3. Follow up with your orthopaedic surgeon and discuss your concerns 4. Also follow up with your primary doctor to see if physical therapy would be appropriate 5. Can also alternate ibuprofen and tylenol for pain and swelling 6. Please call at anytime if you have any questions or concerns - Problem List & Annotations (1) Swelling of joint, wrist, right SNOMED Code(s): 608949247 Code(s): M25.431 - EFFUSION, RIGHT WRIST Status: Acute Priority: Low Current Visit: Yes - Problem List Review Problem List Initiated/Reviewed/Updated: Yes - My Orders Last 24 Hours: My Active Orders 09/25/18 13:10 Wrist Comp Min 3V Rt [CR] Stat - Assessment/Plan Last 24 Hours: My Active Orders 09/25/18 13:10 Wrist Comp Min 3V Rt [CR] Stat Assessment:: right wrist swelling and pain Plan: Plan 1. Stay well hydrated 2. Keep your wrist wrapped as this can help with the swelling 3. Follow up with your orthopaedic surgeon and discuss your concerns 4. Also follow up with your primary doctor to see if physical therapy would be appropriate 5. Can also alternate ibuprofen and tylenol for pain and swelling 6. Please call at anytime if you have any questions or concerns
--- NOTE | 2018-09-25 14:03 | CR ---
[id number] RAD/RAD Wrist Right 3V Min EXAM: RAD Wrist Right 3V Min CLINICAL DATA: RIGHT WRIST PAIN COMPARISON: CORRELATION IS MADE WITH THE EXAM OF MAY 22, 2018. FINDINGS: Surgical and posttraumatic degenerative changes are seen. Abnormality is identified in the region of the triangle fibrocartilaginous complex.. IMPRESSION: NO ACUTE FRACTURE OR DISLOCATION. Ken Ramsey MD 09/25/18 [id number] Thank you for allowing us to participate in the care of your patient.
== END 2018-09-25 13:48 | disposition home or self-care (01) ==
LOC: VM.ED 12:52
DX: M25.431 Effusion, right wrist (principal); I10 Essential (primary) hypertension; K21.9 Gastro-esophageal reflux disease without esophagitis; Z88.0 Allergy status to penicillin; Z88.1 Allergy status to other antibiotic agents; Z91.040 Latex allergy status; Z88.5 Allergy status to narcotic agent; Z91.013 Allergy to seafood; Z91.048 Other nonmedicinal substance allergy status; Z88.6 Allergy status to analgesic agent; Z88.2 Allergy status to sulfonamides; Z79.899 Other long term (current) drug therapy; Z79.01 Long term (current) use of anticoagulants
CPT/HCPCS: 73110-RT; 93005; 99283-25; 99283-GF

== ENCOUNTER 2020-06-23 16:02 | Emergency (ER) | payer MEDICARE, MEDICAID ==
[2020-06-23 17:07] VITALS: BP 140/92; PULSE 109
--- NOTE | 2020-06-23 19:40 | EDM.PDOC ---
ED HPI GENERAL MEDICAL PROBLEM - General Chief Complaint: Laceration Stated Complaint: LACERATION Time Seen by Provider: 06/23/20 16:05 Source of Information: Reports: Patient History Limitations: Reports: No Limitations - History of Present Illness INITIAL COMMENTS - FREE TEXT/NARRATIVE: Pt. presents to ER with complaints of laceration to R distal portion of 5th digit. Pt. states that she cut it while she was cutting butter. Denies injury elsewhere. Her tetanus is up to date. Pt. is on coumadin. She states that she has the bleeding controlled at this time. Onset: Today Onset Date: 06/23/20 Location: Reports: Neck Quality: Reports: Ache Improves with: Reports: None Context: Reports: Activity Treatments [employer]: Reports: Acetaminophen - Related Data Allergies Allergy/AdvReac Type Severity Reaction Status Date / Time Iodine and Iodide Containing Allergy Severe Anaphylactic Verified 06/23/20 16:57 Produc Shock doxycycline Allergy Rash Verified 06/23/20 16:57 erythromycin base Allergy Rash Verified 06/23/20 16:57 ketorolac Allergy Rash Verified 06/23/20 16:57 latex Allergy Rash Verified 06/23/20 16:57 Macrolide Antibiotics Allergy Rash Verified 06/23/20 16:57 oxycodone Allergy Cannot Verified 06/23/20 16:57 Remember Penicillins Allergy Rash Verified 06/23/20 16:57 shellfish derived Allergy Facial Verified 06/23/20 16:57 Swelling Sulfa (Sulfonamide Allergy Rash Verified 06/23/20 16:57 Antibiotics) Home Meds: Home Meds Cyclobenzaprine [Flexeril] 10 mg PO TID PRN 07/20/16 [History] Gabapentin [Neurontin] 600 mg PO TID 07/20/16 [History] Hydrocodone/Acetaminophen [[place] 10-325 Tablet] 1 each PO Q4H PRN 07/20/16 [History] Losartan Potassium 25 mg PO DAILY 07/20/16 [History] Morphine Sulfate [Morphine Sulfate ER] 30 mg PO Q12H 07/20/16 [History] Omeprazole 20 mg PO BID 07/20/16 [History] SUMAtriptan [Imitrex] 25 mg PO Q2H PRN 07/20/16 [History] Warfarin [Coumadin] 7.5 mg PO ASDIRECTED 07/20/16 [History] Acetaminophen [Tylenol] 650 mg PO Q4H PRN #0 tablet 07/21/16 [Rx] Past Medical History Cardiovascular History: Reports: Blood Clots/VTE/DVT, Hypertension Other Cardiovascular History: sinus tachycardia Respiratory History: Reports: Pneumonia, Recurrent Gastrointestinal History: Reports: GERD Musculoskeletal History: Reports: Other (See Below) Other Musculoskeletal History: DDD Oncologic (Cancer) History: Reports: Colon, Pancreatic, Other (See Below) Other Oncologic History: appendix. carcinoid - Infectious Disease History Infectious Disease History: Reports: Influenza - Past Surgical History Cardiovascular Surgical History: Reports: None GI Surgical History: Reports: Appendectomy, Other (See Below) Other GI Surgeries/Procedures: spleenectomy Female Surgical History: Reports: Other (See Below) Other Female Surgeries/Procedures: ovarian cyst removed Musculoskeletal Surgical History: Reports: Other (See Below) Other Musculoskeletal Surgeries/Procedures:: back surgeries X12 Oncologic Surgical History: Reports: Other (See Below) Other Oncologic Surgeries/Procedures: Removal of 75% of pancreas Social & Family History - Family History Family Medical History: No Pertinent Family History - Tobacco Use Tobacco Use Status *Q: Unknown Ever Used Tobacco - Recreational Drug Use Recreational Drug Use: No ED ROS GENERAL - Review of Systems Review Of Systems: See Below Musculoskeletal: Reports: Other (laceration to tip of 5th digit R hand. It is quite superficial.) ED EXAM, SKIN/RASH Exam: See Below Extremities: Other (subcentimeter laceration to tip of 5th digit R hand. The laceration is quite shallow and can be repaired with dermabond.) ED SKIN PROCEDURES - Laceration/Wound Repair Right Digit - 5th (Baby) Appearance: Superficial Skin Prep: Chlorhexidine (Hibiciens), Saline Closed with: Dermabond Lac/Wound length In cm: 1 Course - Vital Signs Last Recorded V/S: Last Vital Signs Temp 36.1 C 06/23/20 16:05 Pulse 109 H 06/23/20 16:05 Resp 16 06/23/20 16:05 BP 140/92 H 06/23/20 16:05 Pulse Ox 96 06/23/20 16:05 Departure - Departure Time of Disposition: 17:00 Disposition: Home, Self-Care 01 Clinical Impression: Laceration - Discharge Information Instructions: Laceration Care, Adult Referrals: Fidelia Bruce MD [Primary Care Provider] - Forms: ED Department Discharge Additional Instructions: Keep elevated above heart as much as possible for the next few hours. Keep dry for 48 hours. Return if there is any redness, swelling, or discharge from the finger. No follow-up is necessary. The glue will eventually wear off. Sepsis Event Note (ED) - Evaluation Sepsis Screening Result: No Definite Risk - Focused Exam Vital Signs: Vital Signs Temp Pulse Resp BP Pulse Ox 06/23/20 16:05 36.1 C 109 H 16 140/92 H 96 - Assessment/Plan Plan: Keep elevated above heart as much as possible for the next few hours. Keep dry for 48 hours. Return if there is any redness, swelling, or discharge from the finger. No follow-up is necessary. The glue will eventually wear off.
== END 2020-06-23 16:20 | disposition home or self-care (01) ==
LOC: VM.ED 16:02
DX: S61.216A Laceration without foreign body of right little finger without damage to nail, initial encounter (principal); I10 Essential (primary) hypertension; K21.9 Gastro-esophageal reflux disease without esophagitis; Z88.0 Allergy status to penicillin; Z88.2 Allergy status to sulfonamides; Z91.048 Other nonmedicinal substance allergy status; Z88.5 Allergy status to narcotic agent; Z88.8 Allergy status to other drugs, medicaments and biological substances; Z91.013 Allergy to seafood; Z79.899 Other long term (current) drug therapy; W26.8XXA Contact with other sharp object(s), not elsewhere classified, initial encounter
CPT/HCPCS: 12001; 99282-25; 99283

== ENCOUNTER 2023-10-10 18:56 | Emergency (ER) | payer MEDICARE, MEDICAID ==
[2023-10-10 19:29] VITALS: BP 156/89; PULSE 104
[2023-10-10] MEDS: Take Home: Cyclobenzaprine 10 MG Tab, 4 Tab Pack PO ONE (20:30)
== END 2023-10-10 20:40 | disposition home or self-care (01) ==
LOC: VM.ED 18:56
DX: S83.92XA Sprain of unspecified site of left knee, initial encounter (principal); I10 Essential (primary) hypertension; J45.909 Unspecified asthma, uncomplicated; K21.9 Gastro-esophageal reflux disease without esophagitis; F17.210 Nicotine dependence, cigarettes, uncomplicated; Z90.49 Acquired absence of other specified parts of digestive tract; Z79.899 Other long term (current) drug therapy; Z79.01 Long term (current) use of anticoagulants; Z88.8 Allergy status to other drugs, medicaments and biological substances; Z88.6 Allergy status to analgesic agent; Z88.5 Allergy status to narcotic agent; Z88.0 Allergy status to penicillin; Z88.2 Allergy status to sulfonamides; Z91.013 Allergy to seafood; Z91.040 Latex allergy status; Z91.018 Allergy to other foods; Z88.1 Allergy status to other antibiotic agents; W22.8XXA Striking against or struck by other objects, initial encounter
CPT/HCPCS: 73562-LT; 99283; A9270-GY

== ENCOUNTER 2024-01-05 14:46 | Emergency (ER) | payer MEDICAID, MEDICARE ==
[2024-01-05 15:07] VITALS: BP 101/55; PULSE 106
[2024-01-05 15:26] LABS: INR 1.6 (0.9-1.1)
== END 2024-01-05 16:02 ==
LOC: VM.ED 14:46 → SUPCPDRO 14:46 → VM.ED 16:02
DX: I80.02 Phlebitis and thrombophlebitis of superficial vessels of left lower extremity (principal); Z79.01 Long term (current) use of anticoagulants; I10 Essential (primary) hypertension; K21.9 Gastro-esophageal reflux disease without esophagitis; Z90.49 Acquired absence of other specified parts of digestive tract; Z79.899 Other long term (current) drug therapy; Z79.891 Long term (current) use of opiate analgesic; Z88.0 Allergy status to penicillin; Z88.2 Allergy status to sulfonamides; Z91.013 Allergy to seafood; Z88.5 Allergy status to narcotic agent; Z88.1 Allergy status to other antibiotic agents; Z91.040 Latex allergy status; Z91.041 Radiographic dye allergy status; Z88.8 Allergy status to other drugs, medicaments and biological substances
CPT/HCPCS: 36415; 85610; 99283; 99284

== ENCOUNTER 2024-09-23 15:27 | Emergency (ER) | payer MEDICARE, MEDICAID ==
[2024-09-23] MEDS ORDERED: Ondansetron 4 MG/2 ML SDV IVPUSH ONE (16:02)
[2024-09-23] MEDS: Acetaminophen/HYDROcodone 325-5 MG Tab PO ONE (16:55)
[2024-09-23 16:58] LABS: BASOPHILS ABSOLUTE AUTO 0.0 x10^3/uL (0.0-0.2); BASOPHILS PERCENT AUTO 0.1 % (0.2-1.2); EOSINOPHILS ABSOLUTE AUTO 0.0 x10^3/uL (0.0-0.5); EOSINOPHILS PERCENT AUTO 0.1 % (0.0-4.0); IMMATURE GRAN ABSOLUTE AUTO 0.03 x10^3/uL (0.00-0.07); IMMATURE GRAN PERCENT AUTO 0.20 % (0.00-0.43); LYMPHOCYTES ABSOLUTE AUTO 3.4 x10^3/uL (1.0-4.8); LYMPHOCYTES PERCENT AUTO 23.3 % (25.0-50.0); MONOCYTES ABSOLUTE AUTO 1.0 x10^3/uL (0.0-0.8); MONOCYTES PERCENT AUTO 6.7 % (2.0-11.0); NEUTROPHILS ABSOLUTE AUTO 10.0 x10^3/uL (1.8-7.7); NEUTROPHILS PERCENT AUTO 69.6 % (50.0-80.0); PLATELET COUNT,PLT 280 x10^3/uL (130-400); RED BLOOD CELL COUNT 3.84 x10^6/uL (4.00-5.50); WHITE BLOOD CELL COUNT,WBC 14.4 x10^3/uL (4.0-10.0)
[2024-09-23 17:08] LABS: APPEARANCE,URINE CLEAR (CLEAR); GLUCOSE,URINE NEGATIVE (NEGATIVE); OCCULT BLOOD,URINE SMALL (NEGATIVE)
[2024-09-23 17:15] LABS: EPITHELIAL CELLS,URINE FEW
[2024-09-23 17:26] LABS: A/G RATIO 0.36; ALANINE AMINOTRANSFERASE,ALT 11 U/L (14-59); ASPARTATE AMNIOTRANSFERASE,AST 41 U/L (15-37); BILIRUBIN TOTAL 0.4 mg/dL (0.2-1.0); BLOOD UREA NITROGEN,BUN 8 mg/dL (7-18); CARBON DIOXIDE,CO2 22 mmol/L (21-32); CHLORIDE,CL 107 mmol/L (98-107); CREATININE 0.9 mg/dL (0.55-1.02); ESTIMATED GFR 70 mL/min (>=60); GLUCOSE RANDOM 98 mg/dL (70-99); POTASSIUM,K 3.8 mmol/L (3.5-5.1); PROTEIN TOTAL,TP 6.4 g/dL (6.4-8.2); SODIUM,NA 141 mmol/L (136-145)
== END 2024-09-23 17:57 | disposition home or self-care (01) ==
LOC: VM.ED 15:27
DX: S50.11XA Contusion of right forearm, initial encounter (principal); M25.531 Pain in right wrist; M25.511 Pain in right shoulder; M25.572 Pain in left ankle and joints of left foot; M79.672 Pain in left foot; I10 Essential (primary) hypertension; K21.9 Gastro-esophageal reflux disease without esophagitis; Z91.041 Radiographic dye allergy status; Z91.040 Latex allergy status; Z88.5 Allergy status to narcotic agent; Z88.8 Allergy status to other drugs, medicaments and biological substances; Z88.0 Allergy status to penicillin; Z88.2 Allergy status to sulfonamides; Z91.013 Allergy to seafood; Z79.899 Other long term (current) drug therapy; Z79.02 Long term (current) use of antithrombotics/antiplatelets; W10.8XXA Fall (on) (from) other stairs and steps, initial encounter; Y93.89 Activity, other specified
CPT/HCPCS: 36415; 70450; 72125; 73030-RT; 73110-RT; 73610-LT; 73620-LT; 80053; 81001; 83735; 84484; 85025; 99284; A9270-GY

== ENCOUNTER 2024-09-26 13:50 | Inpatient (IN) | payer MEDICAID, MEDICARE, OTHER ==
[2024-09-26] MEDS: Diltiazem 50 MG/10 ML SDV IVPUSH ONE ×2 (14:32→15:25)
[2024-09-26 14:49] LABS: BASOPHILS ABSOLUTE AUTO 0.0 x10^3/uL (0.0-0.2); BASOPHILS PERCENT AUTO 0.3 % (0.2-1.2); EOSINOPHILS ABSOLUTE AUTO 0.0 x10^3/uL (0.0-0.5); EOSINOPHILS PERCENT AUTO 0.2 % (0.0-4.0); IMMATURE GRAN ABSOLUTE AUTO 0.02 x10^3/uL (0.00-0.07); IMMATURE GRAN PERCENT AUTO 0.20 % (0.00-0.43); LYMPHOCYTES ABSOLUTE AUTO 3.8 x10^3/uL (1.0-4.8); LYMPHOCYTES PERCENT AUTO 32.1 % (25.0-50.0); MONOCYTES ABSOLUTE AUTO 1.1 x10^3/uL (0.0-0.8); MONOCYTES PERCENT AUTO 9.6 % (2.0-11.0); NEUTROPHILS ABSOLUTE AUTO 6.8 x10^3/uL (1.8-7.7); NEUTROPHILS PERCENT AUTO 57.6 % (50.0-80.0); PLATELET COUNT,PLT 285 x10^3/uL (130-400); RED BLOOD CELL COUNT 3.62 x10^6/uL (4.00-5.50); WHITE BLOOD CELL COUNT,WBC 11.7 x10^3/uL (4.0-10.0)
[2024-09-26 15:03] LABS: INR 1.1 (0.9-1.1); PTT,PARTIAL THROMBOPLSTIN TIME 32.3 SEC (23.5-33.2)
[2024-09-26 15:10] LABS: A/G RATIO 0.35; ALANINE AMINOTRANSFERASE,ALT 11 U/L (14-59); ASPARTATE AMNIOTRANSFERASE,AST 24 U/L (15-37); BILIRUBIN TOTAL 0.5 mg/dL (0.2-1.0); BLOOD UREA NITROGEN,BUN 12 mg/dL (7-18); CARBON DIOXIDE,CO2 26 mmol/L (21-32); CHLORIDE,CL 106 mmol/L (98-107); CREATININE 1.2 mg/dL (0.55-1.02); GLUCOSE RANDOM 129 mg/dL (70-99); POTASSIUM,K 3.2 mmol/L (3.5-5.1); PROTEIN TOTAL,TP 6.6 g/dL (6.4-8.2); SODIUM,NA 141 mmol/L (136-145)
[2024-09-26 15:11] LABS: ESTIMATED GFR 50 mL/min (>=60); ETHANOL BLOOD MEDICAL < 3 mg/dL (0-3); LACTIC ACID 2.8 mmol/L (0.4-2.0)
[2024-09-26] MEDS: Lactated Ringers 1,000 ML IV ONE ×2 (15:24→16:52)
[2024-09-26] MEDS: fentaNYL 50 MCG/ML SDV IVPUSH ONE (15:25)
[2024-09-26] MEDS: methylPREDNISolone Sodium Succinate 125 MG/2 ML SDV IV ONE (15:52)
[2024-09-26] MEDS: Potassium Chloride 20 MEQ Tab.ER PO ONE (16:41)
[2024-09-26] MEDS: Magnesium Sulfate 4 GM/100 mL 4 GM in Premix Bag 1 BAG IV ONE (16:41)
[2024-09-26] MEDS ORDERED: Albuterol HFA 18 Gm Inhaler INH PRN (18:54)
[2024-09-26 18:55] LABS: APPEARANCE,URINE SLIGHTLY CLOUDY (CLEAR); GLUCOSE,URINE NEGATIVE (NEGATIVE); OCCULT BLOOD,URINE SMALL (NEGATIVE)
[2024-09-26 18:58] LABS: AMPHETAMINES SCREEN, URINE NEGATIVE (NEGATIVE); BUPRENORPHINE SCREEN,URINE NEGATIVE (NEGATIVE); COCAINE METABOLITES,URINE NEGATIVE (NEGATIVE); METHADONE SCREEN, URINE NEGATIVE (NEGATIVE); METHAMPHETAMINE SCREEN, URINE NEGATIVE (NEGATIVE); OXYCODONE SCREEN,URINE POSITIVE (NEGATIVE); PCP SCREEN,URINE NEGATIVE (NEGATIVE); THC SCREEN,URINE 50 NG/ML NEGATIVE (NEGATIVE)
[2024-09-26 19:01] LABS: SQUAMOUS EPITHELIAL CELLS,UR FEW /HPF (NOT SEEN)
[2024-09-26] MEDS ORDERED: Sennosides/Docusate Sodium 50-8.6 MG Tab PO PRN (19:04)
[2024-09-26] MEDS ORDERED: Magnesium Hydroxide 400 MG/5 ML Susp 30 ML Cup PO PRN (19:04)
[2024-09-26] MEDS ORDERED: Naloxone 0.4 MG/ML SDV IVPUSH PRN (19:08)
[2024-09-26] MEDS: Morphine 30 MG Tab.ER PO SCH (20:08)
[2024-09-27 06:49] LABS: BASOPHILS ABSOLUTE AUTO 0.0 x10^3/uL (0.0-0.2); BASOPHILS PERCENT AUTO 0.1 % (0.2-1.2); EOSINOPHILS ABSOLUTE AUTO 0.0 x10^3/uL (0.0-0.5); EOSINOPHILS PERCENT AUTO 0.0 % (0.0-4.0); IMMATURE GRAN ABSOLUTE AUTO 0.04 x10^3/uL (0.00-0.07); IMMATURE GRAN PERCENT AUTO 0.50 % (0.00-0.43); LYMPHOCYTES ABSOLUTE AUTO 1.9 x10^3/uL (1.0-4.8); LYMPHOCYTES PERCENT AUTO 21.2 % (25.0-50.0); MONOCYTES ABSOLUTE AUTO 0.5 x10^3/uL (0.0-0.8); MONOCYTES PERCENT AUTO 6.2 % (2.0-11.0); NEUTROPHILS ABSOLUTE AUTO 6.3 x10^3/uL (1.8-7.7); NEUTROPHILS PERCENT AUTO 72.0 % (50.0-80.0); PLATELET COUNT,PLT 219 x10^3/uL (130-400); RED BLOOD CELL COUNT 3.45 x10^6/uL (4.00-5.50); WHITE BLOOD CELL COUNT,WBC 8.7 x10^3/uL (4.0-10.0)
[2024-09-27 07:12] LABS: A/G RATIO 0.27; ALANINE AMINOTRANSFERASE,ALT 18.0 U/L (14-59); ASPARTATE AMNIOTRANSFERASE,AST 51.0 U/L (15-37); BILIRUBIN TOTAL 0.6 mg/dL (0.2-1.0); BLOOD UREA NITROGEN,BUN 12.0 mg/dL (7-18); CARBON DIOXIDE,CO2 22.0 mmol/L (21-32); CHLORIDE,CL 103.0 mmol/L (98-107); CREATININE 0.8 mg/dL (0.55-1.02); EST CRCL DRUG DOSING (CG) 58.93 mL/min; GLUCOSE RANDOM 250.0 mg/dL (70-99); PROTEIN TOTAL,TP 6.6 g/dL (6.4-8.2); SODIUM,NA 134.0 mmol/L (136-145)
[2024-09-27 07:13] LABS: ESTIMATED GFR 81.0 mL/min (>=60)
[2024-09-27 07:16] LABS: POTASSIUM,K 4.4 mmol/L (3.5-5.1)
[2024-09-27] MEDS: Potassium Chloride 10 MEQ Tab.ER PO SCH (08:18)
[2024-09-27] MEDS: Acetaminophen/HYDROcodone 325-10 MG Tab PO PRN (13:49)
[2024-09-28 06:51] LABS: PLATELET COUNT,PLT 324.0 x10^3/uL (130-400); RED BLOOD CELL COUNT 3.27 x10^6/uL (4.00-5.50); WHITE BLOOD CELL COUNT,WBC 12.8 x10^3/uL (4.0-10.0)
[2024-09-28 07:15] LABS: A/G RATIO 0.36; ALANINE AMINOTRANSFERASE,ALT 15.0 U/L (14-59); ASPARTATE AMNIOTRANSFERASE,AST 25.0 U/L (15-37); BILIRUBIN TOTAL 0.2 mg/dL (0.2-1.0); BLOOD UREA NITROGEN,BUN 13.0 mg/dL (7-18); CARBON DIOXIDE,CO2 25.0 mmol/L (21-32); CHLORIDE,CL 105.0 mmol/L (98-107); CREATININE 0.8 mg/dL (0.55-1.02); EST CRCL DRUG DOSING (CG) 58.93 mL/min; GLUCOSE RANDOM 114.0 mg/dL (70-99); POTASSIUM,K 4.7 mmol/L (3.5-5.1); PROTEIN TOTAL,TP 6.4 g/dL (6.4-8.2); SODIUM,NA 138.0 mmol/L (136-145)
[2024-09-28 07:16] LABS: ESTIMATED GFR 81.0 mL/min (>=60)
[2024-09-28] MEDS: Sodium Chloride 0.9% 10 ML Syringe FLUSH PRN (16:10)
[2024-09-28] MEDS: Ondansetron 4 MG Tab.DIS PO PRN (23:32)
[2024-09-29 06:55] LABS: PLATELET COUNT,PLT 300.0 x10^3/uL (130-400); RED BLOOD CELL COUNT 3.16 x10^6/uL (4.00-5.50); WHITE BLOOD CELL COUNT,WBC 9.3 x10^3/uL (4.0-10.0)
[2024-09-29 07:09] LABS: A/G RATIO 0.38; ALANINE AMINOTRANSFERASE,ALT 16.0 U/L (14-59); ASPARTATE AMNIOTRANSFERASE,AST 24.0 U/L (15-37); BILIRUBIN TOTAL 0.2 mg/dL (0.2-1.0); BLOOD UREA NITROGEN,BUN 10.0 mg/dL (7-18); CARBON DIOXIDE,CO2 28.0 mmol/L (21-32); CHLORIDE,CL 105.0 mmol/L (98-107); CREATININE 0.8 mg/dL (0.55-1.02); EST CRCL DRUG DOSING (CG) 58.93 mL/min; GLUCOSE RANDOM 108.0 mg/dL (70-99); POTASSIUM,K 4.9 mmol/L (3.5-5.1); PROTEIN TOTAL,TP 6.2 g/dL (6.4-8.2); SODIUM,NA 139.0 mmol/L (136-145)
[2024-09-29 07:10] LABS: ESTIMATED GFR 81.0 mL/min (>=60)
[2024-09-29 14:16] VITALS: BP 143/85; PULSE 96
== END 2024-09-29 13:20 | disposition home or self-care (01) | DRG 194 ==
LOC: VM.ED 13:50 → VM.MS 17:02
PROVIDERS: ADMIT Nurse Practitioner Family; ATTEND Family Medicine
DX: J15.9 Unspecified bacterial pneumonia (principal); E87.20 Acidosis, unspecified; N30.00 Acute cystitis without hematuria; A41.9 Sepsis, unspecified organism; J18.9 Pneumonia, unspecified organism; I48.91 Unspecified atrial fibrillation; E87.6 Hypokalemia; E83.42 Hypomagnesemia; E66.9 Obesity, unspecified; I35.0 Nonrheumatic aortic (valve) stenosis; G43.909 Migraine, unspecified, not intractable, without status migrainosus; I10 Essential (primary) hypertension; F17.210 Nicotine dependence, cigarettes, uncomplicated; I34.81 Nonrheumatic mitral (valve) annulus calcification; G89.29 Other chronic pain; M25.571 Pain in right ankle and joints of right foot; M47.816 Spondylosis without myelopathy or radiculopathy, lumbar region; M62.838 Other muscle spasm; I34.2 Nonrheumatic mitral (valve) stenosis; R00.0 Tachycardia, unspecified; G47.00 Insomnia, unspecified; S63.501A Unspecified sprain of right wrist, initial encounter; W19.XXXA Unspecified fall, initial encounter; Z90.89 Acquired absence of other organs; Z86.718 Personal history of other venous thrombosis and embolism; Z68.36 Body mass index [BMI] 36.0-36.9, adult; Z85.07 Personal history of malignant neoplasm of pancreas; J45.909 Unspecified asthma, uncomplicated; K21.9 Gastro-esophageal reflux disease without esophagitis; Z90.49 Acquired absence of other specified parts of digestive tract; Z88.8 Allergy status to other drugs, medicaments and biological substances; Z88.1 Allergy status to other antibiotic agents; Z91.048 Other nonmedicinal substance allergy status; Z88.0 Allergy status to penicillin; Z88.2 Allergy status to sulfonamides; Z91.013 Allergy to seafood; Z85.038 Personal history of other malignant neoplasm of large intestine; Z88.5 Allergy status to narcotic agent; Z98.890 Other specified postprocedural states; Z90.710 Acquired absence of both cervix and uterus; Z86.711 Personal history of pulmonary embolism; Z91.040 Latex allergy status; Z91.041 Radiographic dye allergy status; Z79.01 Long term (current) use of anticoagulants; Z79.51 Long term (current) use of inhaled steroids; Z79.899 Other long term (current) drug therapy
CPT/HCPCS: 36415; 70450; 71045; 71250; 73100-RT; 73610-LT; 80053; 80305-QW; 80307; 81001; 82947; 83605; 83735; 83880; 84484; 85025; 85027; 85610; 85730; 86140; 87040; 87205; 93005; 93010; 94640; 94668; 94760; 96365; 96366; 96368; 96375; 96376; 97161-GP; 97165-GO; 97535-GO; 99284; 99285-25; A9270-GY; J0696; J2919; J3010; J3475; J3490; J7120